=== PATIENT | female | born 1965 | race Caucasian/White ===

== ENCOUNTER 2018-05-19 20:38 | Emergency (ER) | payer OTHER ==
[~2018-05-19] VITALS: Ht 165.1 cm; Wt 127.0 kg
[2018-05-19 20:56] VITALS: BP 132/61
== END 2018-05-20 02:01 | disposition home or self-care (01) ==
LOC: ER 20:41
DX: S83.91XA Sprain of unspecified site of right knee, initial encounter (principal); M21.851 Other specified acquired deformities of right thigh; G35 Multiple sclerosis; Z90.49 Acquired absence of other specified parts of digestive tract; Z90.710 Acquired absence of both cervix and uterus; W01.0XXA Fall on same level from slipping, tripping and stumbling without subsequent striking against object, initial encounter; Y93.01 Activity, walking, marching and hiking; Y99.8 Other external cause status; Y92.89 Other specified places as the place of occurrence of the external cause
CPT/HCPCS: 29505; 73700